=== PATIENT | female | born 1980 | race Caucasian/White ===

== ENCOUNTER → 2016-12-18 | Outpatient (CLI) | payer BC, OTHER ==
[~2016-12-18] MED LIST: GYMNEMA SYLVESTRE PO; IBUP800T OR; IBUP80TA PO; METF500T PO; Mega Red Krill Oil PO; PERC5TAB8 OR; PRENTAB8 PO; VALT500T OR; VANADYL SULFATE PO; [UNRECOGNIZED DRUG - OTHER] PO; [UNRECOGNIZED DRUG - OTHER] PO; cinnamon PO
--- NOTE | 2016-12-18 14:20 | REP ---
TRIPLE PHASE BONE SCAN OF THE KNEE: Following the intravenous administration of 21. 5 millicuries technetium 99m MDP, immediate flow images are obtained of the knees in the anterior and posterior projections, including the distal two-thirds of the femurs. There is no significant abnormal blood flow bilaterally. Immediate blood pool and two-hour delayed images are performed of the same regions in the anterior, posterior, and both lateral projections. There is no abnormal blood pooling. The delayed images show focal increased uptake in the left medial femoral condyle. IMPRESSION: Metabolically active bone lesion, left medial femoral condyle. No other abnormalities seen scintigraphically. Recent MRI 12/09/2016 does show a bone lesion at this location. Recommend correlation with plain films. Signed by Prabhjot Chapin MD 12/18/2016 08:02 P
== END ==
LOC: M RAD 09:54
PROVIDERS: ATTEND Orthopaedic Surgery
DX: R93.7 Abnormal findings on diagnostic imaging of other parts of musculoskeletal system (principal)

== ENCOUNTER 2017-03-19 13:33 | Day surgery (SDC) | payer BC, OTHER ==
[~2017-03-19] VITALS: Ht 162.6 cm; Wt 136.1 kg
[~2017-03-19 13:33] MED LIST changes: +BIOT50004 PO; +CINN500C9 PO; +GLIP1TAB49 PO; +GYMNPOW PO; -METF500T PO; +METF500T13 PO; +ROPIvacaine 0.5% 30 ML INJECTION (J2795) As Ordered ONE; +TURM500C3 PO; +[UNRECOGNIZED DRUG - OTHER] PO
[2017-03-19] MEDS ORDERED: LR 1,000 ML IV ONE (14:00)
[2017-03-19] MEDS ORDERED: LIDOCAINE 1% SDV 5 ML VIAL SQ ONE (14:00)
[2017-03-19] MEDS ORDERED: PROPOFOL 200 MG/20 ML VIAL As Ordered ONE (14:56)
[2017-03-19] MEDS ORDERED: LIDOCAINE 2% INJ 100 MG/5 ML SDV (FOR ANES.) As Ordered ONE (14:56)
[2017-03-19] MEDS ORDERED: ONDANSETRON 4MG/2ML VIAL (J2405) As Ordered ONE ×2 (14:56→16:42)
[2017-03-19] MEDS ORDERED: fentaNYL 100 MCG/2 ML INJECTION (J3010) As Ordered ONE (14:56)
[2017-03-19] MEDS ORDERED: ROCURONIUM BROMIDE 50 MG/5 ML VIAL/SYRINGE As Ordered ONE (14:57)
[2017-03-19] MEDS ORDERED: MIDAZOLAM INJ 2 MG/2 ML VIAL (J2250) As Ordered ONE (15:25)
[2017-03-19] MEDS ORDERED: HYDROmorphone HCL 2 MG/ML 1ML VIAL (J1170) As Ordered ONE (16:09)
[2017-03-19] MEDS ORDERED: PERCOCET 5MG/325MG TAB As Ordered ONE (16:43)
[2017-03-19] MEDS ORDERED: METOCLOPRAMIDE INJ 10MG/2ML VIAL (J2765) As Ordered ONE (16:43)
[2017-03-19] MEDS ORDERED: LR 1,000 ML IV SCH ×2 (16:45→17:00)
[2017-03-19] MEDS ORDERED: ONDANSETRON 4MG/2ML VIAL (J2405) IV PRN (16:45)
[2017-03-19] MEDS ORDERED: HYDROmorphone HCL 1 MG/ML SYRINGE (J1170) IV PRN (16:45)
[2017-03-19] MEDS ORDERED: PERCOCET 5MG/325MG TAB PO PRN ×3 (16:45→17:00)
[2017-03-19] MEDS ORDERED: fentaNYL 100 MCG/2 ML INJECTION (J3010) IV PRN (16:45)
[2017-03-19] MEDS ORDERED: METOCLOPRAMIDE INJ 10MG/2ML VIAL (J2765) IV PRN (16:45)
[2017-03-19 18:10] VITALS: BP 149/80
--- NOTE | 2017-03-21 22:47 | RO ---
DATE OF PROCEDURE: 03/19/2017 PREPROCEDURE DIAGNOSES: 1. Left knee complex medial meniscus tear. 2. Left knee partial anterior cruciate ligament (ACL) tear. POSTPROCEDURE DIAGNOSES: 1. Left knee complex medial meniscus tear. 2. Left knee partial anterior cruciate ligament (ACL) tear. PROCEDURE: Left knee partial medial meniscectomy. SURGEON: Saida Haynes MD WELLNESS EDUCATOR: ANESTHESIA: General, laryngeal mask anesthetic. COMPLICATIONS: None. FINDINGS: Her knee was stable to exam under anesthesia to a Reji and pivot shift. Arthroscopically, she had a very complex unstable degenerative type tear of the posterior medial meniscus with a large unstable parrot beak component to it. She had a relatively tight knee otherwise, but the ACL was partially torn, but it was still intact with good intact fibrous, lateral meniscus was not torn. Articular cartilage surface is otherwise well maintained. DESCRIPTION OF PROCEDURE: Antibiotics were given intravenously preoperatively and then a successful general laryngeal mask anesthetic was established. Tourniquet was placed on the left upper thigh and not inflated. Examination under anesthesia revealed a stable knee. Her left knee was then carefully prepped and draped in the usual sterile fashion. Then after appropriate time out, insufflation portal was established superior medially. Scope was introduced anterolaterally and working portal was anteromedially. We introduced the arthroscope and explored the joint and found indeed the findings as noted above. I lightly debrided some of the frayed fibers of the ACL. Lateral meniscus was not torn, so I debrided the torn portion of the medial meniscus after probing it carefully. Then I used the basket punch and the #4-0 curved shaver to debride it back to good stable rim. Documented this photographically before and after the debridement. Nice stable construct was felt to have left behind for the remnant of the medial meniscus. 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 Finding no other arthroscopically treatable pathology, I copiously irrigated out the knee joint and instilled ropivacaine, covered the wound with Adaptic dry sterile bulky dressing. The tourniquet was then released and she was awakened from general laryngeal mask anesthetic, after having tolerated the procedure well and transferred to the recovery room in stable condition. There were no intraoperative complications.
== END 2017-03-19 18:42 | disposition home or self-care (01) ==
LOC: M SDC 13:33
PROVIDERS: ATTEND Orthopaedic Surgery
DX: M23.204 Derangement of unspecified medial meniscus due to old tear or injury, left knee (principal); S83.512A Sprain of anterior cruciate ligament of left knee, initial encounter; E11.9 Type 2 diabetes mellitus without complications; L65.9 Nonscarring hair loss, unspecified; M30.0 Polyarteritis nodosa; T88.59XD Other complications of anesthesia, subsequent encounter; M25.562 Pain in left knee; Z88.5 Allergy status to narcotic agent; Z79.899 Other long term (current) drug therapy; Z98.51 Tubal ligation status; Z87.891 Personal history of nicotine dependence; Z90.710 Acquired absence of both cervix and uterus; X58.XXXA Exposure to other specified factors, initial encounter; Y93.89 Activity, other specified; Y92.89 Other specified places as the place of occurrence of the external cause; Y99.8 Other external cause status
CPT/HCPCS: 29881; J0690; J1170; J2250; J2405; J2765; J2795; J3010

== ENCOUNTER 2020-08-08 13:53 | Emergency (ER) | payer BC, OTHER ==
[~2020-08-08 13:53] MED LIST changes: -GLIP1TAB49 PO; +GLIP5TAB20 PO; -ROPIvacaine 0.5% 30 ML INJECTION (J2795) As Ordered ONE
--- NOTE | 2020-08-08 17:02 | REP ---
INDICATION: PAIN/SWELLING COMPARISON: None. TECHNIQUE: Chapin scale and color Doppler evaluation right lower extremity using linear high frequency transducer. FINDINGS: Ultrasound examination of the right lower extremity deep venous structures from the common femoral vein to the popliteal vein demonstrates normal compressibility flow and wave patterns in response to respiration and augmentation. There is no evidence for deep venous thrombosis. IMPRESSION: No evidence for deep venous thrombosis. <Electronically signed by Napoleon Olsen > 08/08/20 0713
--- NOTE | 2020-08-08 17:04 | REP ---
INDICATION: LOCALIZED AREA OF SWELLING COMPARISON: None TECHNIQUE: Real time richardson scale ultrasound examination using linear high-frequency transducer. FINDINGS: Directed ultrasound examination overlying the area of maximal pain and tenderness along the mid right thigh demonstrates thrombosed varicosity consistent with thrombophlebitis. IMPRESSION: Thrombophlebitis <Electronically signed by Napoleon Olsen > 08/08/20 [id number]
[2020-08-08 17:31] VITALS: BP 152/93
== END 2020-08-08 17:25 | disposition home or self-care (01) ==
LOC: M ED 13:53
DX: I80.01 Phlebitis and thrombophlebitis of superficial vessels of right lower extremity (principal); Z88.5 Allergy status to narcotic agent

== ENCOUNTER → 2021-05-26 | Outpatient (CLI) | payer BC, OTHER ==
--- NOTE | 2021-05-26 12:30 | REPMRS ---
Patient History The patient states she had a clinical breast exam in April 2021. No known family history of cancer. Patient states no breast complaints today. Patient has signed MRS History Sheet. Digital Woman Screen Mammo: May 26, 2021 - Exam #: [id number] Bilateral CC and MLO view(s) were taken. Technologist: Tricia Urrutia Technologist Prior study comparison: April 26, 2020, bilateral digital mammo screening bilat, performed at [facility]. FINDINGS: There are scattered fibroglandular densities. Screening. Digital screening (2D) mammography was performed bilaterally in the CC and MLO projections. Additionally, breast tomosynthesis (3D mammography) was performed bilaterally in the CC and MLO projections. Todays exam was compared to the prior exam/exams. By history, the patient has no complaints of a palpable breast abnormality or other significant breast complaints. The breasts are unchanged in size and shape. There are no urbano-soft tissue densities or spiculated masses. There is no internal architectural distortion. There are no suspicious urbano-calcific clusters. Skin thickening or nipple retraction is not present. IMPRESSION: BI-RADS Category 2- Benign Findings. There is no evidence of malignant alteration of the breasts. Followup examination recommended in one year. The Volpara volumetric breast density category is B, there are scattered areas of fibroglandular densities. This mammogram was read with the assistance of [employer],an FDA approved computer aided detection system for mammography. The lifetime Tyrer-Cuzick score is 11.1 % Negative x-ray reports should not delay surgical consultation if a dominant or clinically suspicious mass is present. Not all breast cancers can be identified by mammography. Therefore, we recommend that you continue to perform regular breast self-examination and physical examination and then promptly contact your physician of any concerns or changes. Adenosis and dense breasts may obscure an underlying neoplasm. Assessment: BI-RADS/ACR category 2 mammogram. Benign Findings. Recommendation Routine screening mammogram of both breasts in 1 year. Electronically Signed By: Jairo Hines DO 05/26/21 [id number]
== END ==
LOC: M WHC 11:31
PROVIDERS: ATTEND Obstetrics & Gynecology
DX: Z12.31 Encounter for screening mammogram for malignant neoplasm of breast (principal)

== ENCOUNTER → 2022-05-27 | Outpatient (CLI) | payer BC, OTHER | LOC: M WHC 13:08 | PROVIDERS: ATTEND Obstetrics & Gynecology | DX: Z12.31 Encounter for screening mammogram for malignant neoplasm of breast (principal) ==

== ENCOUNTER → 2023-04-01 | Outpatient (CLI) | payer BC, OTHER ==
[~2023-04-01] MED LIST changes: +ISOVUE-300 61% 100ML VIAL As Ordered ONE; +LIDOCAINE 1% MDV 20ML VIAL As Ordered ONE; +PROHANCE 279.3MG/ML 5ML VIAL As Ordered ONE
== END ==
LOC: M RAD 07:11
PROVIDERS: ATTEND Physician Assistant
DX: M75.42 Impingement syndrome of left shoulder (principal); M75.102 Unspecified rotator cuff tear or rupture of left shoulder, not specified as traumatic
CPT/HCPCS: 23350; 73223; 77002; A9576; Q9967

== ENCOUNTER → 2023-06-02 | Outpatient (CLI) | payer BC, OTHER ==
[~2023-06-02] MED LIST changes: -LIDOCAINE 1% MDV 20ML VIAL As Ordered ONE; -PROHANCE 279.3MG/ML 5ML VIAL As Ordered ONE; +ROPIvacaine 0.5% 30ML VIAL As Ordered ONE; +TRIAMCINOLONE ACETONIDE SUSP 40MG/ML 1ML VIAL As Ordered ONE
== END ==
LOC: M RAD 15:15
PROVIDERS: ATTEND Orthopaedic Surgery
DX: M19.012 Primary osteoarthritis, left shoulder (principal)
CPT/HCPCS: 20610; 77002; J2795; J3301; Q9967

== ENCOUNTER → 2023-06-29 | Outpatient (CLI) | payer BC, OTHER ==
[~2023-06-29] MED LIST changes: -ISOVUE-300 61% 100ML VIAL As Ordered ONE; -ROPIvacaine 0.5% 30ML VIAL As Ordered ONE; -TRIAMCINOLONE ACETONIDE SUSP 40MG/ML 1ML VIAL As Ordered ONE
== END ==
LOC: M WHC 13:19
PROVIDERS: ATTEND Obstetrics & Gynecology
DX: Z12.31 Encounter for screening mammogram for malignant neoplasm of breast (principal)

== ENCOUNTER 2024-05-16 08:21 | Day surgery (SDC) | payer BC ==
[~2024-05-16] VITALS: Ht 162.6 cm; Wt 105.7 kg
[~2024-05-16 08:21] MED LIST changes: +ALPH300C PO; -BIOT50004 PO; +BIOT5CAP8 PO; +CHOL50002 PO; +CURC500C PO; +DAND525C PO; +GARL500C6 PO; +GLIP10TA15 PO; +HAWT500C PO; +KRIL1CAP6 PO; +LIDOCAINE 2% 100MG/5ML SDV (FOR ANES.) As Ordered ONE; +QUNO100C PO; +SEMA1PEN2 SC; +propofoL 200 MG/20 ML VIAL As Ordered ONE
[2024-05-16] MEDS: NS 250 ML IV ONE (09:00)
[2024-05-16 10:07] VITALS: TEMP 98
[2024-05-16 10:28] VITALS: BP 138/89; O2SAT 99
== END 2024-05-16 10:34 | disposition home or self-care (01) ==
LOC: M OPP 08:21
PROVIDERS: ATTEND Surgery
DX: Z12.11 Encounter for screening for malignant neoplasm of colon (principal); K62.89 Other specified diseases of anus and rectum; E11.9 Type 2 diabetes mellitus without complications; Z86.718 Personal history of other venous thrombosis and embolism; Z87.891 Personal history of nicotine dependence; Z88.5 Allergy status to narcotic agent; Z79.84 Long term (current) use of oral hypoglycemic drugs; Z79.85 Long-term (current) use of injectable non-insulin antidiabetic drugs; Z79.899 Other long term (current) drug therapy; Z83.79 Family history of other diseases of the digestive system

== ENCOUNTER → 2024-07-03 | Outpatient (CLI) | payer BC ==
[~2024-07-03] MED LIST changes: -LIDOCAINE 2% 100MG/5ML SDV (FOR ANES.) As Ordered ONE; -propofoL 200 MG/20 ML VIAL As Ordered ONE
== END ==
LOC: M WHC 11:26
PROVIDERS: ATTEND Obstetrics & Gynecology
DX: Z12.31 Encounter for screening mammogram for malignant neoplasm of breast (principal)

== ENCOUNTER → 2025-03-09 | Outpatient (REF) | payer BC ==
[~2025-03-09] MED LIST changes: +GLIP-318 PO; -GLIP5TAB20 PO; +TURM1CAP7 PO; -TURM500C3 PO
[2025-03-09 22:11] LABS: APPEARANCE, URINE HAZY (CLEAR); BACTERIA, URINE AUTO NEGATIVE (NEGATIVE); BILIRUBIN, URINE AUTO NEGATIVE (NEGATIVE); BLOOD, URINE BLOOD 2+ (NEGATIVE); GLUCOSE, URINE (UA) AUTO 3+ mg/dL (NEGATIVE); KETONE, URINE AUTO NEGATIVE (NEGATIVE); LEUKOCYTE ESTERASE, URINE AUTO 1+ (NEGATIVE); MUCUS, URINE SMALL (NEGATIVE); NITRITE, URINE AUTO NEGATIVE (NEGATIVE); PROTEIN, URINE AUTO 1+ mg/dL (NEGATIVE); RBC, URINE AUTO 32 /HPF (0-3); SPECIFIC GRAVITY URINE AUTO 1.024 (1.002-1.035); SQUAMOUS EPITHELIAL CELL UR AU 0 /HPF (0-6); UROBILINOGEN, URINE AUTO 2.0 mg/dL (0.0-2.0); WBC, URINE AUTO 15 /HPF (0-3)
== END ==
LOC: M LAB REF 21:56
DX: N39.0 Urinary tract infection, site not specified (principal)